=== PATIENT | male | born 1980 | race Caucasian/White ===

== ENCOUNTER 2017-05-01 17:54 | Emergency (ER) | payer OTHER ==
[~2017-05-01] VITALS: Ht 177.8 cm; Wt 82.9 kg
[2017-05-01 20:03] VITALS: BP 132/83
[2017-05-01 22:09] LABS: HEMATOCRIT 51.6 % (39.2-51.8); HEMOGLOBIN 17.2 g/dL (13.7-18.0); WHITE BLOOD COUNT 8.1 x10^3/uL (3.4-10)
[2017-05-01 22:21] LABS: ASPARTATE AMINO TRANSFERASE 18 U/L (15-37); BLOOD UREA NITROGEN 13 mg/dL (7-18)
== END 2017-05-01 23:28 | disposition home or self-care (01) ==
LOC: ED 23:21
DX: R22.31 Localized swelling, mass and lump, right upper limb (principal)
CPT/HCPCS: 36415; 71020; 80053; 85025; 99285

== ENCOUNTER 2018-11-04 09:19 | Emergency (ER) | payer OTHER ==
[~2018-11-04] VITALS: Ht 177.8 cm; Wt 83.0 kg
[2018-11-04 09:54] LABS: BASOPHILS # (AUTO) 0.06 x10^3/uL (0-0.1); BASOPHILS % (AUTO) 1 % (0-1); EOSINOPHILS # (AUTO) 0.06 x10^3/uL (0-0.4); EOSINOPHILS % (AUTO) 1 % (1-7); LYMPHOCYTES # (AUTO) 1.81 x10^3/uL (1-3.4); LYMPHOCYTES % (AUTO) 25 % (22-44); MD NO; MEAN CORPUSCULAR HEMOGLOBIN 31.7 pg (27.5-34.5); MEAN CORPUSCULAR HGB CONC 33.4 g/dL (33.2-36.2); MEAN CORPUSCULAR VOLUME 94.9 fL (81-97); MEAN PLATELET VOLUME 8.6 fL (7.4-10.4); MONOCYTES # (AUTO) 0.59 x10^3/uL (0.2-0.8); MONOCYTES % (AUTO) 8 % (2-9); NEUTROPHILS # (AUTO) 4.67 x10^3/uL (1.8-6.8); NEUTROPHILS % (AUTO) 65 % (42-75); PLATELET COUNT 249 x10^3/uL (130-400); RED CELL DISTRIBUTION WIDTH 13.1 % (9.4-14.8)
[2018-11-04 10:01] LABS: ALBUMIN 4.5 g/dL (3.4-5.0); ANION GAP 6 mmol/L (5-15); CALCIUM 9.3 mg/dL (8.5-10.1); CHLORIDE 110 mmol/L (98-107); CREATININE 1.23 mg/dL (0.7-1.3)
[2018-11-04 10:11] LABS: FREE T4 (FREE THYROXINE) 0.97 ng/dL (0.76-1.46)
--- NOTE | 2018-11-04 10:18 | NUR ---
PT WITH C/O OF DIZZINESS, STATES HEAD "FEELS HEAVY" THIS HAS BEEN GOING ON FOR APROX 7-10 DAYS. PT STATES LAST NIGHT HAD "BOUTS OF ADRENALINE RUSHES WHILE IN BED" PT DENIES CP, SOB, N/V, TRAUMA" AT BEDSIDE, STATES HE HAS BEEN FALLING ASLEEP RIGHT WHEN HE GETS HOME WHICH IS NOT NORMAL FOR HIM. PT PLACED ON NIBP, CONT PULSE OX, IMPORT MANAGER. ERMD IN TO EVAL PT.
[2018-11-04 10:20] VITALS: BP 127/85
--- NOTE | 2018-11-04 11:25 | NUR ---
PT TAKEN TO CT
== END 2018-11-04 12:45 | disposition home or self-care (01) ==
LOC: ED 12:32
DX: R55 Syncope and collapse (principal); R00.0 Tachycardia, unspecified; F41.9 Anxiety disorder, unspecified
CPT/HCPCS: 36415; 70450; 80048; 82040; 84439; 84443; 85025; 93005; 99284

== ENCOUNTER → 2018-11-08 | Outpatient (CLI) | payer OTHER | END | disposition home or self-care (01) | LOC: CFH 06:28 | PROVIDERS: ATTEND Family Medicine | DX: R55 Syncope and collapse (principal) | CPT/HCPCS: 70551 ==

== ENCOUNTER 2018-11-26 07:06 | Outpatient (CLI) | payer OTHER | END 2018-11-26 23:59 | disposition home or self-care (01) | LOC: CVU 07:06 | PROVIDERS: ATTEND Family Medicine | DX: R55 Syncope and collapse (principal); R00.0 Tachycardia, unspecified; R42 Dizziness and giddiness | CPT/HCPCS: 0399T; 93225; 93226; 93306; 93880 ==

== ENCOUNTER → 2019-12-09 | Outpatient (CLI) | payer OTHER ==
[~2019-12-09] MED LIST: OMNIPAQUE 350 MG/ML, 100ML BOTTLE ONE
== END | disposition home or self-care (01) ==
LOC: RAD 10:06
PROVIDERS: ATTEND Family Medicine
DX: M47.812 Spondylosis without myelopathy or radiculopathy, cervical region (principal); J38.7 Other diseases of larynx
CPT/HCPCS: 70491; Q9967

== ENCOUNTER 2020-05-28 09:55 | Outpatient (CLI) | payer OTHER ==
[2020-05-28 10:34] LABS: BASOPHILS % (AUTO) 1 % (0-1); EOSINOPHILS % (AUTO) 2 % (1-7); LYMPHOCYTES % (AUTO) 32 % (22-44); MEAN CORPUSCULAR HEMOGLOBIN 31.1 pg (27.5-34.5); MEAN CORPUSCULAR HGB CONC 33.8 g/dL (33.2-36.2); MEAN PLATELET VOLUME 8.3 fL (7.4-10.4); MONOCYTES % (AUTO) 8 % (2-9); NEUTROPHILS % (AUTO) 57 % (42-75); PLATELET COUNT 223 x10^3/uL (130-400); RED BLOOD COUNT 5.14 x10^6/uL (4.38-5.82); RED CELL DISTRIBUTION WIDTH 13.3 % (9.4-14.8)
[2020-05-28 10:37] LABS: MD NO
[2020-05-28 10:43] LABS: ANION GAP 4 mmol/L (5-15); CALCIUM 8.8 mg/dL (8.5-10.1); CHLORIDE 111 mmol/L (98-107)
[2020-05-28 10:49] LABS: ALANINE AMINOTRANSFERASE 42 U/L (12-78); ALKALINE PHOSPHATASE 76 U/L (45-117); BILIRUBIN,TOTAL 0.7 mg/dL (0.2-1.0); CHOL/HDL RATIO 3.1; CHOLESTEROL, TOTAL 153 mg/dL (140-239); CREATININE 1.03 mg/dL (0.7-1.3); HDL CHOL % 33 % (26-37); HDL CHOLESTEROL (DIRECT) 50 mg/dL (40-60); LDL CHOLESTEROL,CALCULATED 84 mg/dL (54-169); LDL/HDL RATIO 1.7 (0.5-3.0); TOTAL PROTEIN 7.5 g/dL (6.4-8.2); TRIGLYCERIDES 94 mg/dL (50-200); VLDL CHOLESTEROL 19 mg/dL (0-25)
== END 2020-05-28 23:59 | disposition home or self-care (01) ==
LOC: LAB 09:55
PROVIDERS: ATTEND Family Medicine
DX: Z00.00 Encounter for general adult medical examination without abnormal findings (principal)
CPT/HCPCS: 36415; 80053; 80061; 84153; 85025; G0103